=== PATIENT | female | born 1985 | race Asian ===

== ENCOUNTER 2017-11-13 13:47 | Inpatient (IN) | payer BC ==
[2017-11-13] VITALS (28 sets, daily range): BP systolic 99–125; BP diastolic 52–77; PULSE 53–89; TEMP 97.6–98.8
[~2017-11-13] VITALS: Ht 165.1 cm; Wt 65.0 kg
[2017-11-13] MEDS ORDERED: MIRALAX PA17 GM/Dose PO (14:08)
[2017-11-13 14:26] LABS: BASO % 0.6 % (0.0-2.0); EOS # 0.1 (0.0-0.7); GRAN # 5.7 (1.4-6.5); GRAN % 78.5 % (42.2-75.2); LYMPH # 1.1 (1.2-3.4); LYMPH % 14.6 % (20.0-51.0); MEAN CELL VOLUME 77 fl (80.0-100.0); MEAN CORPUSCULAR HGB CONC 30 g/dl (33.0-37.0); MONO # 0.4 (0.1-0.6); PLATELET COUNT 158 K/mm3 (130-400); RED BLOOD COUNT 4.68 M/mm3 (4.10-5.30); REDCELL DISTRIBUTION WIDTH-CV 17.7 % (11.5-14.5)
[2017-11-13 14:28] LABS: HEMATOCRIT 35.8 % (37.0-47.0); HEMOGLOBIN 10.8 g/dl (12.5-16.0); MEAN CORPUSCULAR HEMOGLOBIN 23 pg (27.0-31.0)
[2017-11-14 03:12] VITALS: BP 103/78; PULSE 58; TEMP 97.4
[2017-11-14 06:55] VITALS: BP 101/65; PULSE 62; TEMP 97.8
[2017-11-14] MEDS ORDERED: IBU800 M1 PO (08:58)
[2017-11-14] MEDS ORDERED: PERCOCET 325 MG1 TA2 PO (08:58)
[2017-11-14 11:06] VITALS: BP 98/53; PULSE 53; TEMP 98.5
[2017-11-14 16:15] VITALS: BP 105/57; PULSE 59; TEMP 98.7
[2017-11-14 21:30] VITALS: BP 105/59; PULSE 65; TEMP 98.2
[2017-11-15 07:45] VITALS: BP 109/58; PULSE 73; TEMP 97.9
== END 2017-11-15 10:10 | disposition home or self-care (01) | DRG 767 ==
LOC: LDRO 13:47 → EDSEX 14:00 → LDRO 14:00 → OB 14:00 → LDR 14:00 → OB 21:30
PROVIDERS: Student in an Organized Health Care Education/Training Program
PROC: 10E0XZZ Delivery of Products of Conception, External Approach (ICD-10-PCS; principal; 2017-11-13)
PROC: 10D17Z9 Manual Extraction of Products of Conception, Retained, Via Natural or Artificial Opening (ICD-10-PCS; 2017-11-13)
PROC: 0KQM0ZZ Repair Perineum Muscle, Open Approach (ICD-10-PCS; 2017-11-13)
DX: O48.0 Post-term pregnancy (principal); O73.1 Retained portions of placenta and membranes, without hemorrhage; O70.1 Second degree perineal laceration during delivery; Z3A.40 40 weeks gestation of pregnancy; Z37.0 Single live birth
CPT/HCPCS: J2590; J7120